=== PATIENT | male | born 1995 | race Caucasian/White ===

== ENCOUNTER 2016-07-28 20:28 | Emergency (ER) | payer BC ==
[~2016-07-28] VITALS: Ht 182.9 cm; Wt 80.4 kg
[2016-07-28 20:30] VITALS: Ht 182.9 cm; Wt 80.4 kg
--- OUTSIDE RECORDS SUMMARY | 2016-07-28 20:31 | XMS REPORT | Referral Summary ---
Author Author [facility] Organization [facility] Address Unknown Phone Unavailable Care Team Providers Care Director Group Sales Name Role Phone Gorge Luo Primary Care Physician [phone] Encounter VC Date(s): 09/01/14 - 09/01/14 [facility] [address] [place] [id number] Discharge Diagnosis: General medical exam Discharge Diagnosis: Asthma, mild intermittent, well-controlled Discharge Diagnosis: Seasonal allergies Discharge Disposition: 01-Home or Self Care Attending Physician: Gorge Luo DO Admitting Physician: Gorge Luo DO Vital Signs Most recent to 1 oldest [Reference Range]: Temperature Tympanic 36.3 degC [36.6-38.1 degC] *LOW* (09/01/14 8:11 AM) Peripheral Pulse 72 bpm Rate [60-100 bpm] (09/01/14 8:11 AM) Blood Pressure 128/70 mmHg [90-140/60-90 mmHg] (09/01/14 8:11 AM) Problem List Condition Effective Dates Status Health Status Informant Allergic Active rhinitis(Confirmed) Asthma without Active status asthmaticus (disorder)(Confirmed ) Chest 2011 Active pain(Confirmed)1 Iliotibial band Active syndrome(Confirmed)2 Syncope? 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)[address] Morrison; neg ECHO and Holter 2PT 3Refulx precautions, Prilosec 1 mo-see nexgen Allergies, Adverse Reactions, Alerts No Known Medication Allergies Medications naproxen 500 mg oral tablet 500 mg 1 tabs, Oral, BID, # 40 tabs, 0 Refill(s), Pharmacy: [id number], 1 tabs Oral BID Start Date: 10/21/14 Status: Ordered Ventolin HFA 90 mcg/inh inhalation aerosol See Instructions, inhale 4-6 puff by inhalation route every 2-4 hours as needed , 0 Refill(s) Start Date: 04/30/14 Status: Ordered ZyrTEC 10 mg oral tablet See Instructions, take 1 tablet (10MG) by oral route every bedtime prn allergies , 0 Refill(s) Start Date: 04/30/14 Status: Ordered Results No data available for this section Immunizations Vaccine Date Refusal Reason tetanus/diphth/pertuss (Tdap) adult/adol 10/15/09 diphtheria/pertussis, acel/tetanus ped 09/16/99 diphtheria/pertussis, whole cell/tetanus 07/04/95 diphtheria/pertussis, whole cell/tetanus 05/29/94 diphtheria/pertussis, whole cell/tetanus 03/29/94 diphtheria/pertussis, whole cell/tetanus 01/27/94 haemophilus b conjugate (HbOC) vaccine 07/04/95 haemophilus b conjugate (HbOC) vaccine 05/29/94 haemophilus b conjugate (HbOC) vaccine 03/29/94 haemophilus b conjugate (HbOC) vaccine 01/27/94 hepatitis A pediatric vaccine 09/26/10 hepatitis A pediatric vaccine 10/15/09 hepatitis B pediatric vaccine 05/29/94 hepatitis B pediatric vaccine 01/27/94 hepatitis B pediatric vaccine 93 influenza virus vaccine, inactivated 01/30/96 influenza virus vaccine, live 12/25/11 influenza virus vaccine, live 12/30/10 influenza virus vaccine, live 01/10/06 influenza virus vaccine, live 01/14/04 influenza virus vaccine, live 01/05/99 influenza virus vaccine, live 12/31/97 influenza virus vaccine, live 12/29/96 measles/mumps/rubella virus vaccine 09/16/99 measles/mumps/rubella virus vaccine 07/04/95 meningococcal conjugate vaccine 09/23/12 meningococcal conjugate vaccine 10/15/09 poliovirus vaccine, inactivated 09/16/99 poliovirus vaccine, inactivated 05/29/94 poliovirus vaccine, inactivated 05/29/94 poliovirus vaccine, inactivated 01/27/94 varicella virus vaccine 09/26/10 varicella virus vaccine 12/03/96 Procedures No data available for this section Social History Social History Type Response Smoking Status Never smoker Assessment and Plan Extracted from: Title: Office Visit Note Author: Gorge Luo DO Date: 09/01/14 Assessment/Plan Asthma, mild intermittent, well-controlled Based on his history his asthma is well controlled at this time no further intervention needed. Recommended using his inhaler 15 minutes prior to exercise. Follow-up if any exacerbations. Ordered: Periodic Comp Preventive Med 18 to 39 years Est 29[address] General medical exam 1. This is a well-developed well-nourished 18-year-old gentleman in excellent health. At this time no medical intervention needed. No screening recommended for this age group especially with him being in good health. His family risk factors are low except for his father having renal cancer in his mid 40s. 2. Recommended yearly follow-up. 3. Immunizations are up-to-date. Ordered: Periodic Comp Preventive Med 18 to 39 years Est 25014 Seasonal allergies Continue with Zyrtec daily. Ordered: Periodic Comp Preventive Med 18 to 39 years Est 26743
--- OUTSIDE RECORDS SUMMARY | 2016-07-28 20:31 | XMS REPORT | Continuity of Care Document ---
Author Author [facility] Organization [facility] Address Unknown Phone Unavailable Allergies Active Description Code Type Severity Reaction Onset Reported/Identified Relationship to Patient Clinical Status Yes No Known Medication Allergies NKMA N/A N/A Medications Problems Procedures Results Encounters ACCT No. Visit Date/Time Discharge Status Pt. Type Provider Facility Loc./Unit Complaint [id number] 07/07/2015 12:40:00 2015 23:59:00 DIS Outpatient Gorge Luo [facility] [place] DISCUSS OUT OF COUNTRY TRAVEL AND SHOTS HE MAY NEED [id number] 10/21/2014 11:07:00 2014 23:59:00 DIS Outpatient Andres Morgan [facility] rt elbow woke up swollen and red hot to the touch
--- OUTSIDE RECORDS SUMMARY | 2016-07-28 20:31 | XMS REPORT | Referral Summary ---
Author Author [facility] Organization Via [facility]ayan[facility] Address Unknown Phone Unavailable Care Team Providers Care Oil Burner Journeyman Name Role Phone Gorge Luo Primary Care Physician [phone] Encounter VC Date(s): 10/21/14 - 10/21/14 [facility], [address] [place] [address] Discharge Diagnosis: Olecranon bursitis Discharge Disposition: 01-Home or Self Care Attending Physician: Andres Morgan MD Admitting Physician: Andres Morgan MD Referring Physician: Gorge Luo DO Vital Signs Most recent to 1 oldest [Reference Range]: Temperature Tympanic 37.0 degC [36.6-38.1 degC] (10/21/14 11:47 AM) Peripheral Pulse 72 bpm Rate [60-100 bpm] (10/21/14 11:47 AM) Respiratory Rate 14 br/min [14-20 br/min] (10/21/14 11:47 AM) Blood Pressure 122/80 mmHg [90-140/60-90 mmHg] (10/21/14 11:47 AM) Problem List Condition Effective Dates Status Health Status Informant Allergic Active rhinitis(Confirmed) Asthma without Active status asthmaticus (disorder)(Confirmed ) Chest 2012 Active pain(Confirmed)1 Iliotibial band Active syndrome(Confirmed)2 Syncope? 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)[address] 1Eval [address] Morrison; neg ECHO and Holter 2PT 3Refulx precautions, Prilosec 1 mo-see nexgen Allergies, Adverse Reactions, Alerts No Known Medication Allergies Medications naproxen 500 mg oral tablet 500 mg 1 tabs, Oral, BID, # 40 tabs, 0 Refill(s), Pharmacy: [facility] [id number], 1 tabs Oral BID Start Date: 10/21/14 [...] smoker Assessment and Plan Extracted from: Title: Ambulatory Patient Education Author: Andres Morgan MD Date: Orthopedics Olecranon Bursitis with Rehab A bursa is a fluid filled sac that is located between soft tissues (ligaments, tendons, skin) and bones. The purpose of a bursa is to allow the soft tissue to function smoothly, without friction. The olecrenon bursa is located between the back of the elbow (olecrenon) and the skin. Olecrenon bursitis involves inflammation of this bursa, resulting in pain. SYMPTOMS Pain, tenderness, swelling, warmth, or redness over the back of the elbow. Reduced range of motion of the affected elbow. Sometimes, severe pain with movement of the affected elbow. Crackling sound (crepitation) when the bursa is moved or touched. Often, painless swelling of the bursa. Fever (when infected). CAUSES Olecranon bursitis is often caused by direct hit (trauma) to the elbow. Less commonly, it is due to overuse and/or strenuous exercise that the elbow is not used to. RISK INCREASES WITH: Sports that require bending or landing on the elbow (football, volleyball). Vigorous or repetitive athletic training, or sudden increase or change in activity level (weekend warriors). Failure to warm up properly before activity. Poor exercise technique. Playing on artificial turf. PREVENTION Avoid injuries and the overuse of muscles whenever possible. Warm up and stretch properly before activity. Allow for adequate recovery between workouts. Maintain physical fitness: Strength, flexibility, and endurance. Cardiovascular fitness. Learn and use proper technique. Wear properly fitted and padded protective equipment. PROGNOSIS If treated properly, olecranon bursitis is usually curable within 2 weeks. RELATED COMPLICATIONS Longer healing time, if not properly treated or if not given enough time to heal. Recurring symptoms that result in a chronic problem. Joint stiffness with permanent limitation of the affected joint's movement. Infection of the bursa. Chronic inflammation or scarring of the bursa. TREATMENT Treatment first involves the use of ice and medicine, to reduce pain and inflammation. The use of strengthening and stretching exercises may help reduce pain with activity. These exercises may be performed at home or with a therapist. Elbow pads may be advised, to protect the bursa. If symptoms persist , despite non-surgical treatment, a procedure to withdraw fluid from the bursa may be advised. This procedure may be accompanied with an injection of corticosteroids, to reduce inflammation. Sometimes, surgery is needed to remove the bursa. MEDICATION If pain medicine is needed, nonsteroidal anti-inflammatory medicines ( aspirin and ibuprofen), or other minor pain relievers (acetaminophen), are often advised. Do not take pain medicine for 7 days before surgery. Prescription pain relievers may be given, if your caregiver thinks they are needed. Use only as directed and only as much as you need. Corticosteroid injections may be given by your caregiver. These injections should be reserved for the most serious cases, because they may only be given a certain number of times. HEAT AND COLD Cold treatment (icing) should be applied for 10 to 15 minutes every 2 to 3 hours for inflammation and pain, and immediately after activity that aggravates your symptoms. Use ice packs or an ice massage. Heat treatment may be used before performing stretching and strengthening activities prescribed by your caregiver, physical therapist, or quality review trainer. Use a heat pack or a warm water soak. SEEK IMMEDIATE MEDICAL CARE IF: Symptoms get worse or do not improve in 2 weeks, despite treatment. Signs of infection develop, including fever of 102 F (38.9 C), increased pain, redness, warmth, or pus draining from the bursa. New, unexplained symptoms develop. (Drugs used in treatment may produce side effects.) EXERCISES RANGE OF MOTION (ROM) AND STRETCHING EXERCISES - Olecranon Bursitis These exercises may help you when beginning to rehabilitate your injury. Your symptoms may resolve with or without further involvement from your physician, physical therapist or quality review trainer. While completing these exercises, remember: Restoring tissue flexibility helps normal motion to return to the joints. This allows healthier, less painful movement and activity. An effective stretch should be held for at least 30 seconds. A stretch should never be painful. You should only feel a gentle lengthening or release in the stretched tissue. RANGE OF MOTION Elbow Flexion, Supine Lie on your back. Extend your right / left arm into the air, bracing it with your opposite hand. Allow your right / left arm to relax. Let your elbow bend, allowing your hand to fall slowly toward your chest. You should feel a gentle stretch along the back of your upper arm and elbow. Your physician, physical therapist or quality review trainer may ask you to hold a hand weight to increase the intensity of this stretch. Hold for seconds. Slowly return your right / left arm to the upright position. Repeat times. Complete this exercise times per day. STRETCH Elbow Flexors Lie on a firm bed or countertop on your back. Be sure that you are in a comfortable position which will allow you to relax your arm muscles. Place a folded towel under your right / left upper arm, so that your elbow and shoulder are at the same height. Extend your arm; your elbow should not rest on the bed or towel Allow the weight of your hand to straighten your elbow. Keep your arm and chest muscles relaxed. Your caregiver may ask you to increase the intensity of your stretch by adding a small wrist or hand weight. Hold for seconds. You should feel a stretch on the inside of your elbow. Slowly return to the starting position. Repeat times. Complete this exercise times per day. STRENGTHENING EXERCISES - Olecranon Bursitis These exercises will help you regain your strength. They may resolve your symptoms with or without further involvement from your physician, physical therapist or quality review trainer. While completing these exercises, remember: Muscles can gain both the endurance and the strength needed for everyday activities through controlled exercises. Complete these exercises as instructed by your physician, physical therapist or quality review trainer. Increase the resistance and repetitions only as guided by your caregiver. You may experience muscle soreness or fatigue, but the pain or discomfort you are trying to eliminate should never worsen during these exercises. If this pain does worsen, stop and make certain you are following the directions exactly. If the pain is still present after adjustments, discontinue the exercise until you can discuss the trouble with your caregiver. STRENGTH - Elbow Extensors, Isometric Stand or sit upright on a firm surface. Place your right / left arm so that your palm faces your stomach, and it is at the height of your waist. Place your opposite hand on the underside of your forearm. Gently push up as your right / left arm resists. Push as hard as you can with both arms without causing any pain or movement at your right / left elbow. Hold this stationary position for seconds. Gradually release the tension in both arms. Allow your muscles to relax completely before repeating. Repeat times. Complete this exercise times per day. STRENGTH - Elbow Flexors, Isometric Stand or sit upright on a firm surface. Place your right / left arm so that your hand is palm-up and at the height of your waist. Place your opposite hand on top of your forearm. Gently push down as your right / left arm resists. Push as hard as you can with both arms without causing any pain or movement at your right / left elbow. Hold this stationary position for seconds. Gradually release the tension in both arms. Allow your muscles to relax completely before repeating. Repeat times. Complete this exercise times per day. STRENGTH Elbow Flexors, Supinated With good posture, stand or sit on a firm chair without armrests. Allow your right / left arm to rest at your side with your palm facing forward. Holding a weight, or gripping a rubber exercise band or tubing, bring your hand toward your shoulder. Allow your muscles to control the resistance as your hand returns to your side. Repeat times. Complete this exercise times per day. STRENGTH Elbow Flexors, Neutral With good posture, stand or sit on a firm chair without armrests. Allow your right / left arm to rest at your side with your thumb facing forward. Holding a weight, or gripping a rubber exercise band or tubing, bring your hand toward your shoulder. Allow your muscles to control the resistance as your hand returns to your side. Repeat times. Complete this exercise times per day. STRENGTH Elbow Extensors Lie on your back. Extend your right / left elbow into the air, pointing it toward the ceiling. Brace your arm with your opposite hand.* Holding a weight in your hand, slowly straighten your right / left elbow. Allow your muscles to control the weight as your hand returns to its starting position. Repeat times. Complete this exercise times per day. *You may also stand with your elbow overhead and pointed toward the ceiling, supported by your opposite hand. STRENGTH - Elbow Extensors, Dynamic With good posture, stand, or sit on a firm chair without armrests. Keeping your upper arms at your side, bring both hands up to your right / left shoulder while gripping a rubber exercise band or tubing. Your right / left hand should be just below the other hand. Straighten your right / left elbow. Hold for seconds. Allow your muscles to control the rubber exercise band, as your hand returns to your shoulder. Repeat times. Complete this exercise times per day. Document Released: 03/05/2006 Document Revised: 05/27/2012 Document Reviewed: [facility] Patient Information 2015 [facility]. This information is not intended to replace advice given to you by your health care provider. Make sure you discuss any questions you have with your health care provider. No follow up information was provided. Extracted from: Title: Office Visit Note Author: Andres Morgan MD Date: 10/21/14 Assessment/Plan Olecranon bursitis I've recommended naproxen 500 mg twice a day regularly. Icing the elbow may be of some benefit. Avoiding heavy repetitive use or heavy lifting would be appropriate for the next week or 2. If symptoms persist or worsen or further problems develop follow-up. Ordered: Office Visit Level 3 Est 75785 Orders: naproxen, 500 mg 1 tabs, Oral, BID, # 40 tabs, 0 Refill(s), [id number], 1 tabs Oral BID
--- OUTSIDE RECORDS SUMMARY | 2016-07-28 20:31 | XMS REPORT | Referral Summary ---
Author Author [facility] Organization Via [facility]ayan[facility] Address Unknown Phone Unavailable Care Team Providers Care Anodiser Name Role Phone Gorge Luo Primary Care Physician [phone] Encounter VC Date(s): 07/07/15 - 07/07/15 [facility], [address] [place] [id number] Discharge Disposition: 01-Home or Self Care Attending Physician: Gorge Luo DO Admitting Physician: Gorge Luo DO Vital Signs Most recent to 1 oldest [Reference Range]: Temperature Tympanic 35.2 degC [36.6-38.1 degC] *LOW* (07/07/15 12:53 PM) Peripheral Pulse 68 bpm Rate [60-100 bpm] (07/07/15 12:53 PM) Blood Pressure 125/63 mmHg [90-140/60-90 mmHg] (07/07/15 12:53 PM) Problem List Condition Effective Dates Status Health Status Informant Allergic Active rhinitis(Confirmed) Asthma without Active status asthmaticus (disorder)(Confirmed ) Chest 2011 Active pain(Confirmed)1 Iliotibial band Active syndrome(Confirmed)2 Syncope? 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)[address]Eval [address] Morrison; neg ECHO and Holter 2PT 3Refulx precautions, Prilosec 1 mo-see nexgen Allergies, Adverse Reactions, Alerts No Known Medication Allergies Medications Ventolin HFA 90 mcg/inh inhalation aerosol See Instructions, inhale 4-6 puff by inhalation route every 2-4 hours as needed , 0 Refill(s) Start Date: 04/30/14 Status: Ordered Zofran 4 mg oral tablet 4 mg 1 tabs, Oral, q6hr, Nausea or Vomiting, # 30 tabs, 0 Refill(s), Pharmacy: [facility] [id number], 1 tabs Oral q6hr,PRN:Nausea or Vomiting Start Date: 07/07/15 Stop Date: 08/06/15 Status: Ordered ZyrTEC 10 mg oral tablet [...] Visit Note Author: Gorge Luo DO Date: 07/07/15 Assessment/Plan Counseling for travel 1. This is a well-developed well-nourished 19-year- old gentleman in good health. 2. Review of the CDC guidelines recommend typhoid vaccination. 3. He is up-to-date on all his other immunizations. 4. We discussed water and food borne disease in addition to precautions and recommendations. 5. We discussed the risk for high risk sexually transmitted diseases in foreigncountries, patient voiced understanding. Ordered: ondansetron, 4 mg 1 tabs, Oral, q6hr, Nausea or Vomiting, # 30 tabs, 0 Refill(s ), Pharmacy: [facility] [id number], 1 tabs Oral q6hr,PRN:Nausea or Vomiting Office Visit Level 3 Est 64390
[2016-07-28] MEDS ORDERED: ALBU6.7H INH (20:38)
--- NOTE | 2016-07-28 20:40 | NUR ---
ROSMERY DUNAWAY IN WITH PT
[2016-07-28] MEDS ORDERED: LIDOCAINE 1% (10mg/ml) 30ml SDV SQ ONE (20:45)
[2016-07-28] MEDS ORDERED: TETANUS,DIPHTH,a PERTUS (Tdap) 0.5 ML VIAL IM ONE (20:45)
--- NOTE | 2016-07-28 20:46 | ERPDOC ---
Departure Disposition Decision Date: July 28, 2016 Disposition Decision Time: 20:49 Disposition: 01 DISCHARGED HOME, SELF-CARE Impression Impression Impression: Primary Impression: Laceration Additional Impression: Tetanus-diphtheria vaccination administered at current visit Condition: Stable Seen By: Mid-level only Referrals: RICARDA WOOD DO 1 Week Patient Instructions: Tetanus (ED), Care For Your Stitches (ED), Laceration Without Closure (ED) Problems/Meds/Labs Reviewed?: Yes Medications reviewed and manag: Yes Additional Instructions: DIPTHERIA TETANUS TOXOID: You received a tetanus toxoid booster today. This is a shot to prevent tetanus ("Lockjaw"). This is usually good for 5-10 years. You may notice some aching discomfort in the arm of the injection for the next 2-3 days. KEEP FOOT DRY ; KEEP COVERED FOR 2 DAYS AND THEN NEEDED TO PROTECT FOOT FROM INJURY OR TO KEEP CLEAN. CAN SHOWER BUT JUST KEEP THE WATER FROM BEATING DOWN ON THE LACERATION AND DRY QUICKLY POSSIBLE. DO NOT SUBMERSE IN TUB, WHIRLPOOL OR POOL UNTIL SUTURES ARE OUT. NO EXPOSURE TO NAIDU OR POND WATER UNTIL SUTURES ARE OUT. SUTURES WILL NEED TO BE REMOVED IN 7-10 DAYS Follow up care ordered?: Yes Mental Status: Alert, Oriented HPI General Chief Complaint: Laceration Stated Complaint: FOOT LACERATION Time Seen by Provider: 20:30 Source: patient Exam Limitations: no limitations HPI Wound Recheck Initial Comments patient has a 1 cm laceration to his distal foot near the 4th and 5th toe; No involvement over joint space or toes . Patient cut himself on a piece of tin from a metal roof [employer]. Bleeding is controlled; no other trauma 1 - one cm lac Date of injury: July 28, 2016 Symptoms since injury: denies symptoms Allergies: Coded Allergies: No Known Allergies (Unverified , 07/28/16) Past History Past Medical History Pt denies signifigant PMH Review of Systems Constitutional Constitutional: see HPI, DENIES: chills, fever Eyes General: DENIES: burning, itching Lids/Accessories: DENIES: erythema, swelling ENMT Ears: DENIES: erythema, pain Hearing: DENIES: tinnitus Balance: DENIES: falling to one side, vertigo Sinuses: DENIES: congestion Mouth/Throat: DENIES: scratchy throat, sore throat Cardiovascular Cardiac: DENIES: chest pain, dyspnea on exertion Rhythm/Rate: DENIES: tachycardia Pulmonary Respiratory: DENIES: cough, sputum GI Upper Abdomen: DENIES: nausea, pain Lower Abdomen: DENIES: diarrhea, pain Musculoskeletal General: see HPI Integumentary Skin: see HPI Neurological General: DENIES: headache, numbness, weakness All other Systems All Other Systems: Reviewed and Negative Exam General General Nourishment: well nourished, no acute distress, adult Vital Signs: Temperature: 97.9, Source: Oral, Heart Rate: 110, Respiratory Rate : 19, BP: 165/90, Pulse Oximetry: 96 Height (Feet): 6 Height (Inches): 0 Eyes (brief) Eyes Brief: found: EOMI, PERRL, not found: scleral icterus Respiratory (brief) Respiratory Brief: FOUND: clear all mar, equal bilaterally Integumentary (brief) Integumentary Brief: FOUND: other (lac/ see HPI ), pink, warm Neurologic RN Documented GCS Eye Opening: (4)Spontaneous Verbal: (5)Oriented Motor: (6)Obeys Commands Total: Differential Diagnoses Considering: Burn, Cellulitis, Infection, Puncture Procedures Laceration/Wound Repair Wound/Laceration Repair : Wound Location: lower extremity Wound Length (cm): 1.5 Depth, Shape: subcutaneous Explored: clean Irrigated: saline Prep: chlorasept Anesthesia: 1% Lidocaine Volume Anesthetic (ccs): 5 Type of Block: local Wound Revision?: No Repaired With: Sutures Suture Size: 4:0 Suture Type: ethilon Number of Sutures: 4 Layer Closure?: No Progress Results/Orders Orders Procedure Category Date Status Time Tetanus,Diphth,A PHA 07/28/16 Complete Pertus (Tdap) (Adacel) 20:45 Lidocaine 1% PHA 07/28/16 Complete (Xylocaine 1%) 20:45 Neomycin/Polymyxin/Bacitracin PHA 07/28/16 Transmitted (Neosporin 21:15 Medications Current ED Medications Diphtheria/ Tetanus/Acell Pertussis (Adacel) 0.5 ml O ONCE IM Last administered on 07/28/16 20:48; Start 07/28/16 at 20:45; Stop 07/28/16 at 20:46 ; Status DC Lidocaine HCl (Xylocaine 1%) 100 mg O ONCE SQ Last administered on 5/12/17at 20:46; Start 07/28/16 at 20:45; Stop 07/28/16 at 20:46; Status DC ROSMERY FITZPATRICK APRN July 28, 2016 20:46
--- OUTSIDE RECORDS SUMMARY | 2016-07-28 20:59 | XMS REPORT | Continuity of Care Document ---
Author Author [facility] Organization [facility] Address Unknown Phone Unavailable Allergies Active Description Code Type Severity Reaction Onset Reported/Identified Relationship to Patient Clinical Status Yes No Known Medication Allergies NKMA N/A N/A Medications Problems Procedures Results Encounters ACCT No. Visit Date/Time Discharge Status Pt. Type Provider Facility Loc./Unit Complaint [id number] 07/07/2015 12:40:00 2015 23:59:00 DIS Outpatient Gorge Luo [facility] DISCUSS OUT OF COUNTRY TRAVEL AND SHOTS HE MAY NEED [id number] 10/21/2014 11:07:00 2014 23:59:00 DIS Outpatient Andres Morgan [facility] rt elbow woke up swollen and red hot to the touch
[2016-07-28] MEDS ORDERED: NEOMYCIN/POLYM/BACITR OINT PACKET TOP ONE (21:15)
[2016-07-28 21:25] VITALS: BP 165/90; PULSE 110; RESP 19; TEMP 97.9; O2SAT 96
== END 2016-07-28 21:25 | disposition home or self-care (01) ==
LOC: ED 20:28
DX: S91.311A Laceration without foreign body, right foot, initial encounter (principal); W26.8XXA Contact with other sharp object(s), not elsewhere classified, initial encounter; Y93.9 Activity, unspecified; Y92.218 Other school as the place of occurrence of the external cause; Y99.8 Other external cause status
CPT/HCPCS: 90471; 90715